=== PATIENT | female | born 1935 | race Caucasian/White ===

== ENCOUNTER 2022-04-24 18:17 | Inpatient (IN) | payer OTHER ==
[2022-04-24 20:28] LABS: BASO % 0.3 % (0-2.0); HEMATOCRIT 41.6 % (32.4-45.2); HEMOGLOBIN 13.9 GM/dL (10.7-15.3); LYMPH % 13.2 % (8-40); MCH 31.2 pg (25.7-33.7); MCHC 33.5 g/dl (32.0-36.0); MEAN CELL VOLUME 92.9 fl (80-96); MEAN PLT VOLUME 8.8 fl (7.5-11.1); MONO % 8.3 % (3.8-10.2); NEUT % 77.2 % (42.8-82.8); PLATELET COUNT 273 10^3/uL (134-434); RBC 4.48 M/mm3 (3.60-5.2); RDW 13.6 % (11.6-15.6); WHITE BLOOD COUNT 9.7 K/mm3 (4.0-10.0)
[2022-04-24 20:42] LABS: EPI CELLS 21 /uL (0-25.1); HYALINE CASTS 0 /uL (0-3.1); URINE APPEARANCE CLEAR; URINE BACTERIA 150 /uL (0-1359); URINE BILIRUBIN NEGATIVE (NEGATIVE); URINE COLOR YELLOW; URINE GLUCOSE (UA) NEGATIVE (NEGATIVE); URINE KETONE NEGATIVE (NEGATIVE); URINE LEUK ESTERASE 2+ (NEGATIVE); URINE NITRITE NEGATIVE (NEGATIVE); URINE PROTEIN TRACE (NEGATIVE); URINE RBC 12 /uL (0-23.9); URINE UROBILINOGEN 0.2 mg/dL (0.2-1.0); URINE WBC 76 /uL (0-25.8)
[2022-04-24 20:48] LABS: CALCIUM 9.5 mg/dL (8.5-10.1)
[2022-04-24 20:49] LABS: BLOOD UREA NITROGEN 29.6 mg/dL (7-18)
[2022-04-24 20:52] LABS: CREATININE 1.4 mg/dL (0.55-1.3)
[2022-04-24 20:54] LABS: BILIRUBIN,TOTAL 1.4 mg/dL (0.2-1); TOT PROT 7.7 g/dl (6.4-8.2)
[2022-04-24] MEDS ORDERED: CEFTRIAXONE 1 GM in DEXTROSE 5%-WATER - 50 ML IVPB ONE (21:10)
[2022-04-24] MEDS ORDERED: SODIUM CHLORIDE 0.9% 500 ML INFUS.BAG IV ONE (21:11)
[2022-04-24] MEDS ORDERED: CEFTRIAXONE 1 GM/50 ML BAG ONE (21:16)
[2022-04-25] MEDS ORDERED: SODIUM CHLORIDE 0.45% 1,000 ML IV SCH (01:15)
[2022-04-25] MEDS ORDERED: LEVOTHYROXINE NA 50 MCG TABLET (FP) PO SCH (07:00)
[2022-04-25 07:42] LABS: BASO % 0.2 % (0-2.0); EOS % 1.5 % (0-4.5); HEMATOCRIT 38.9 % (32.4-45.2); HEMOGLOBIN 13.2 GM/dL (10.7-15.3); LYMPH % 13.4 % (8-40); MCH 31.4 pg (25.7-33.7); MEAN CELL VOLUME 92.2 fl (80-96); MEAN PLT VOLUME 8.5 fl (7.5-11.1); MONO % 8.5 % (3.8-10.2); NEUT % 76.4 % (42.8-82.8); PLATELET COUNT 252 10^3/uL (134-434); RBC 4.22 M/mm3 (3.60-5.2); RDW 13.7 % (11.6-15.6); WHITE BLOOD COUNT 9.8 K/mm3 (4.0-10.0)
[2022-04-25 07:43] LABS: PROTHROMBIN TIME (PATIENT) 11.5 SEC (9.7-13.0)
[2022-04-25 07:45] LABS: ACTIVATED PTT 29.7 SECONDS (25.2-36.5)
[2022-04-25 08:03] LABS: MAGNESIUM 2.1 mg/dL (1.8-2.4)
[2022-04-25 08:04] LABS: CALCIUM 8.9 mg/dL (8.5-10.1)
[2022-04-25 08:05] LABS: ALBUMIN 3.5 g/dl (3.4-5.0); BLOOD UREA NITROGEN 21.7 mg/dL (7-18)
[2022-04-25 08:07] LABS: CREATININE 1.2 mg/dL (0.55-1.3); TOT PROT 6.9 g/dl (6.4-8.2)
[2022-04-25 08:08] LABS: PHOSPHOROUS 3.2 mg/dL (2.5-4.9)
[2022-04-25 08:11] LABS: BILIRUBIN,TOTAL 1.8 mg/dL (0.2-1)
[2022-04-25] MEDS ORDERED: LEVOTHYROXINE NA 25 MCG TABLET (FP) ONE (10:26)
[2022-04-25] MEDS ORDERED: CEFTRIAXONE 1 GM/50 ML BAG ONE (10:26)
[2022-04-25] MEDS: CEFTRIAXONE 1 GM in DEXTROSE 5%-WATER - 50 ML IVPB SCH (10:43)
[2022-04-25] MEDS: LEVOTHYROXINE SODIUM 100 MCG/ML 1 ML VIAL IVPUSH SCH (10:43)
[2022-04-25] MEDS ORDERED: MAGNESIUM SULF 50% (8.12 MEQ/2 ML-1 GM VIAL) IVPB ONE (10:52)
[2022-04-25] MEDS ORDERED: hydrALAZINE HCL 20 MG/ML VIAL IVPUSH PRN (11:31)
[2022-04-25] MEDS ORDERED: levETIRAcetam 500 MG/5 ML INJECTION VIAL IVPB ONE ×2 (12:58→14:35)
[2022-04-25] MEDS ORDERED: MAGNESIUM SULFATE IN WATER 2 GM/50 ML IVPB IVPB ONE (14:35)
[2022-04-25] MEDS ORDERED: hydrALAZINE HCL 20 MG/ML VIAL ONE (16:54)
[2022-04-25] MEDS ORDERED: VALSARTAN 40 MG TABLET PO ONE (19:25)
[2022-04-25] MEDS ORDERED: PATIENT'S OWN MEDICATION (NON-FORMULARY) (Pravastatin Sodium 40 MG Tablet) PO SCH (22:00)
[2022-04-25] MEDS ORDERED: ATORVASTATIN CA 80 MG TABLET (FP) PO SCH (22:00)
[2022-04-26] MEDS ORDERED: levETIRAcetam 500 MG/5 ML INJECTION VIAL IVPB ONE (00:27)
[2022-04-26] MEDS: levETIRAcetam 500 MG/5 ML INJECTION VIAL IVPB SCH ×3 (00:31→22:01)
[2022-04-26 08:34] LABS: BASO % 0.1 % (0-2.0); EOS % 0.9 % (0-4.5); HEMATOCRIT 37.9 % (32.4-45.2); HEMOGLOBIN 12.7 GM/dL (10.7-15.3); LYMPH % 8.4 % (8-40); MCH 31.1 pg (25.7-33.7); MCHC 33.5 g/dl (32.0-36.0); MEAN CELL VOLUME 92.7 fl (80-96); MONO % 9.9 % (3.8-10.2); NEUT % 80.7 % (42.8-82.8); PLATELET COUNT 259 10^3/uL (134-434); RBC 4.09 M/mm3 (3.60-5.2); RDW 13.7 % (11.6-15.6); WHITE BLOOD COUNT 12.1 K/mm3 (4.0-10.0)
[2022-04-26 09:19] LABS: ALBUMIN 3.4 g/dl (3.4-5.0); BLOOD UREA NITROGEN 22.1 mg/dL (7-18)
[2022-04-26 09:20] LABS: CALCIUM 8.8 mg/dL (8.5-10.1)
[2022-04-26 09:22] LABS: CREATININE 1.1 mg/dL (0.55-1.3); MAGNESIUM 2.6 mg/dL (1.8-2.4)
[2022-04-26 09:24] LABS: BILIRUBIN,TOTAL 2.3 mg/dL (0.2-1); TOT PROT 6.6 g/dl (6.4-8.2)
[2022-04-26] MEDS: CEFTRIAXONE 1 GM in DEXTROSE 5%-WATER - 50 ML IVPB SCH (10:06)
[2022-04-26] MEDS: DEXTROSE 5%-NORMAL SALINE 1,000 ML IV SCH (13:03)
[2022-04-26] MEDS: LEVOTHYROXINE SODIUM 100 MCG/ML 1 ML VIAL IVPUSH SCH (13:03)
[2022-04-26] MEDS: hydrALAZINE HCL 20 MG/ML VIAL IVPUSH SCH ×2 (17:13→22:03)
[2022-04-26] MEDS ORDERED: ACETAMINOPHEN 1000 MG/100 ML BAG IVPB ONE (22:21)
[2022-04-27 00:38] VITALS: BMI 17.7
[2022-04-27] MEDS: DEXTROSE 5%-NORMAL SALINE 1,000 ML IV SCH ×2 (01:22→17:08)
[2022-04-27] MEDS: hydrALAZINE HCL 20 MG/ML VIAL IVPUSH SCH ×3 (04:33→17:02)
[2022-04-27 08:11] LABS: BASO % 0.4 % (0-2.0); EOS % 1.2 % (0-4.5); HEMOGLOBIN 12.6 GM/dL (10.7-15.3); LYMPH % 8.5 % (8-40); MCH 31.5 pg (25.7-33.7); MCHC 33.9 g/dl (32.0-36.0); MEAN CELL VOLUME 92.9 fl (80-96); MEAN PLT VOLUME 9.2 fl (7.5-11.1); MONO % 11.8 % (3.8-10.2); NEUT % 78.1 % (42.8-82.8); PLATELET COUNT 211 10^3/uL (134-434); RBC 3.99 M/mm3 (3.60-5.2); RDW 14.2 % (11.6-15.6); WHITE BLOOD COUNT 11.2 K/mm3 (4.0-10.0)
[2022-04-27 08:35] LABS: CALCIUM 8.6 mg/dL (8.5-10.1); MAGNESIUM 2.5 mg/dL (1.8-2.4)
[2022-04-27 08:37] LABS: BLOOD UREA NITROGEN 23.7 mg/dL (7-18)
[2022-04-27 08:40] LABS: BILIRUBIN,TOTAL 1.5 mg/dL (0.2-1); TOT PROT 6.4 g/dl (6.4-8.2)
[2022-04-27] MEDS: CEFTRIAXONE 1 GM in DEXTROSE 5%-WATER - 50 ML IVPB SCH (10:39)
[2022-04-27] MEDS: levETIRAcetam 500 MG/5 ML INJECTION VIAL IVPB SCH (10:40)
[2022-04-27] MEDS: MEMANTINE HCL 10 MG TABLET (FP) PO SCH (10:40)
[2022-04-27] MEDS: LEVOTHYROXINE SODIUM 100 MCG/ML 1 ML VIAL IVPUSH SCH (10:42)
[2022-04-27] MEDS ORDERED: hydrALAZINE HCL 20 MG/ML VIAL IVPUSH PRN (16:50)
[2022-04-27] MEDS: ACETAMINOPHEN 325 MG TABLET (FP) PO PRN (17:05)
[2022-04-27] MEDS: AMINO ACIDS/PROTEIN HYDROLYS 30 ML LIQUID.PKT PO SCH (17:13)
[2022-04-27] MEDS: amLODIPine BESYLATE 5 MG TABLET (FP) PO SCH (17:13)
[2022-04-27] MEDS: ATORVASTATIN CA 40 MG TABLET (FP) PO SCH (21:37)
[2022-04-27] MEDS: levETIRAcetam 500 MG TABLET (FP) PO SCH (21:38)
[2022-04-27] MEDS: MIRTAZAPINE 15 MG TABLET (FP) PO SCH (21:38)
[2022-04-28] MEDS: LEVOTHYROXINE NA 50 MCG TABLET (FP) PO SCH (06:02)
[2022-04-28] MEDS: CEFTRIAXONE 1 GM in DEXTROSE 5%-WATER - 50 ML IVPB SCH (10:05)
[2022-04-28] MEDS: AMINO ACIDS/PROTEIN HYDROLYS 30 ML LIQUID.PKT PO SCH ×2 (10:05→16:57)
[2022-04-28] MEDS: levETIRAcetam 500 MG TABLET (FP) PO SCH ×2 (10:06→21:10)
[2022-04-28] MEDS: LISINOPRIL 5 MG TABLET PO SCH (10:06)
[2022-04-28] MEDS: MULTIVITAMINS (DAILY MVI) TABLET (FP) PO SCH (10:06)
[2022-04-28] MEDS: MEMANTINE HCL 10 MG TABLET (FP) PO SCH (10:06)
[2022-04-28] MEDS: amLODIPine BESYLATE 5 MG TABLET (FP) PO SCH (10:09)
[2022-04-28 10:10] LABS: BASO % 0.2 % (0-2.0); EOS % 0.4 % (0-4.5); HEMATOCRIT 36.9 % (32.4-45.2); HEMOGLOBIN 12.1 GM/dL (10.7-15.3); LYMPH % 8.7 % (8-40); MCH 30.8 pg (25.7-33.7); MCHC 32.6 g/dl (32.0-36.0); MEAN CELL VOLUME 94.2 fl (80-96); MEAN PLT VOLUME 9.3 fl (7.5-11.1); MONO % 11.1 % (3.8-10.2); NEUT % 79.6 % (42.8-82.8); PLATELET COUNT 217 10^3/uL (134-434); RBC 3.92 M/mm3 (3.60-5.2); RDW 14.1 % (11.6-15.6); WHITE BLOOD COUNT 11.5 K/mm3 (4.0-10.0)
[2022-04-28 11:00] LABS: ALBUMIN 2.7 g/dl (3.4-5.0); BLOOD UREA NITROGEN 23.9 mg/dL (7-18)
[2022-04-28 11:05] LABS: CALCIUM 8.6 mg/dL (8.5-10.1); TOT PROT 6.2 g/dl (6.4-8.2)
[2022-04-28 11:06] LABS: MAGNESIUM 2.3 mg/dL (1.8-2.4)
[2022-04-28] MEDS: DEXTROSE 5%-NORMAL SALINE 1,000 ML IV SCH (16:56)
[2022-04-28] MEDS: MIRTAZAPINE 15 MG TABLET (FP) PO SCH (21:10)
[2022-04-28] MEDS: ATORVASTATIN CA 40 MG TABLET (FP) PO SCH (21:10)
[2022-04-29] MEDS: DEXTROSE 5%-NORMAL SALINE 1,000 ML IV SCH ×2 (02:40→12:30)
[2022-04-29] MEDS: LEVOTHYROXINE NA 50 MCG TABLET (FP) PO SCH (06:17)
[2022-04-29] MEDS: ACETAMINOPHEN 1000 MG/100 ML BAG IVPB PRN ×2 (06:19→17:11)
[2022-04-29 07:50] LABS: BASO % 0.4 % (0-2.0); EOS % 3.3 % (0-4.5); HEMATOCRIT 36.4 % (32.4-45.2); HEMOGLOBIN 12.3 GM/dL (10.7-15.3); LYMPH % 13.3 % (8-40); MCH 31.4 pg (25.7-33.7); MCHC 33.7 g/dl (32.0-36.0); MEAN CELL VOLUME 93.2 fl (80-96); MEAN PLT VOLUME 9.2 fl (7.5-11.1); PLATELET COUNT 230 10^3/uL (134-434); RBC 3.91 M/mm3 (3.60-5.2); RDW 14.3 % (11.6-15.6); WHITE BLOOD COUNT 9.7 K/mm3 (4.0-10.0)
[2022-04-29 08:24] LABS: ALBUMIN 2.5 g/dl (3.4-5.0); CALCIUM 8.7 mg/dL (8.5-10.1); MAGNESIUM 2.2 mg/dL (1.8-2.4)
[2022-04-29 08:27] LABS: CREATININE 1.1 mg/dL (0.55-1.3)
[2022-04-29 08:29] LABS: BILIRUBIN,TOTAL 0.9 mg/dL (0.2-1)
[2022-04-29] MEDS: AMINO ACIDS/PROTEIN HYDROLYS 30 ML LIQUID.PKT PO SCH ×2 (08:49→17:00)
[2022-04-29] MEDS: LISINOPRIL 5 MG TABLET PO SCH (10:12)
[2022-04-29] MEDS: CEFTRIAXONE 1 GM in DEXTROSE 5%-WATER - 50 ML IVPB SCH (10:12)
[2022-04-29] MEDS: levETIRAcetam 500 MG TABLET (FP) PO SCH ×2 (10:12→21:58)
[2022-04-29] MEDS: MULTIVITAMINS (DAILY MVI) TABLET (FP) PO SCH (10:12)
[2022-04-29] MEDS: MEMANTINE HCL 10 MG TABLET (FP) PO SCH (10:14)
[2022-04-29] MEDS: amLODIPine BESYLATE 5 MG TABLET (FP) PO SCH (10:14)
[2022-04-29] MEDS: MIRTAZAPINE 15 MG TABLET (FP) PO SCH (21:58)
[2022-04-29] MEDS: ATORVASTATIN CA 40 MG TABLET (FP) PO SCH (21:58)
[2022-04-30] MEDS: ACETAMINOPHEN 1000 MG/100 ML BAG IVPB PRN (05:29)
[2022-04-30] MEDS: LEVOTHYROXINE NA 50 MCG TABLET (FP) PO SCH (06:07)
[2022-04-30] MEDS: AMINO ACIDS/PROTEIN HYDROLYS 30 ML LIQUID.PKT PO SCH ×2 (09:41→17:52)
[2022-04-30] MEDS: MULTIVITAMINS (DAILY MVI) TABLET (FP) PO SCH (09:42)
[2022-04-30] MEDS: LISINOPRIL 5 MG TABLET PO SCH (09:42)
[2022-04-30] MEDS: levETIRAcetam 500 MG TABLET (FP) PO SCH ×2 (09:42→21:57)
[2022-04-30] MEDS: MEMANTINE HCL 10 MG TABLET (FP) PO SCH (09:42)
[2022-04-30] MEDS: amLODIPine BESYLATE 5 MG TABLET (FP) PO SCH (09:42)
[2022-04-30 16:26] LABS: EOS % 6.7 % (0-4.5); HEMATOCRIT 38.1 % (32.4-45.2); LYMPH % 14.5 % (8-40); MCH 31.4 pg (25.7-33.7); MEAN CELL VOLUME 92.2 fl (80-96); MEAN PLT VOLUME 8.7 fl (7.5-11.1); MONO % 9.4 % (3.8-10.2); NEUT % 68.4 % (42.8-82.8); PLATELET COUNT 284 10^3/uL (134-434); RBC 4.13 M/mm3 (3.60-5.2); RDW 13.9 % (11.6-15.6); WHITE BLOOD COUNT 7.4 K/mm3 (4.0-10.0)
[2022-04-30 16:44] LABS: ALBUMIN 2.7 g/dl (3.4-5.0); BLOOD UREA NITROGEN 30.4 mg/dL (7-18); MAGNESIUM 2.1 mg/dL (1.8-2.4)
[2022-04-30 16:49] LABS: BILIRUBIN,TOTAL 0.5 mg/dL (0.2-1); TOT PROT 6.3 g/dl (6.4-8.2)
[2022-04-30] MEDS: DEXTROSE 5%-NORMAL SALINE 1,000 ML IV SCH (17:52)
[2022-04-30] MEDS: MIRTAZAPINE 15 MG TABLET (FP) PO SCH (21:58)
[2022-04-30] MEDS: ATORVASTATIN CA 40 MG TABLET (FP) PO SCH (21:58)
[2022-05-01] MEDS: LEVOTHYROXINE NA 50 MCG TABLET (FP) PO SCH (06:10)
[2022-05-01] MEDS: LISINOPRIL 5 MG TABLET PO SCH (09:20)
[2022-05-01] MEDS: MULTIVITAMINS (DAILY MVI) TABLET (FP) PO SCH (09:20)
[2022-05-01] MEDS: AMINO ACIDS/PROTEIN HYDROLYS 30 ML LIQUID.PKT PO SCH ×2 (09:20→16:57)
[2022-05-01] MEDS: MEMANTINE HCL 10 MG TABLET (FP) PO SCH (09:21)
[2022-05-01] MEDS: levETIRAcetam 500 MG TABLET (FP) PO SCH (09:21)
[2022-05-01] MEDS: amLODIPine BESYLATE 5 MG TABLET (FP) PO SCH (09:25)
[2022-05-01 15:12] VITALS: RESP 18
[2022-05-01] MEDS: DEXTROSE 5%-NORMAL SALINE 1,000 ML IV SCH (16:58)
[2022-05-01 17:41] VITALS: BP 134/72; PULSE 92; TEMP 98.4
[2022-05-01] MEDS: ACETAMINOPHEN 325 MG TABLET (FP) PO PRN (18:14)
[2022-05-01 18:24] LABS: HEMATOCRIT 37.7 % (32.4-45.2); HEMOGLOBIN 12.7 GM/dL (10.7-15.3); MCHC 33.7 g/dl (32.0-36.0); MEAN CELL VOLUME 91.8 fl (80-96); MEAN PLT VOLUME 8.3 fl (7.5-11.1); PLATELET COUNT 269 10^3/uL (134-434); RBC 4.11 M/mm3 (3.60-5.2); RDW 13.4 % (11.6-15.6); WHITE BLOOD COUNT 8.2 K/mm3 (4.0-10.0)
[2022-05-01 18:33] LABS: CALCIUM 9.1 mg/dL (8.5-10.1)
[2022-05-01 18:34] LABS: ALBUMIN 2.5 g/dl (3.4-5.0); BLOOD UREA NITROGEN 26.2 mg/dL (7-18); MAGNESIUM 1.9 mg/dL (1.8-2.4)
[2022-05-01 18:37] LABS: CREATININE 0.9 mg/dL (0.55-1.3)
[2022-05-01 18:39] LABS: TOT PROT 6.1 g/dl (6.4-8.2)
[2022-05-01 18:55] LABS: ANISOCYTOSIS 3+; MACROCYTOSIS 0; OVALOCYTE 1+; TARGET CELLS 1+; TEAR DROP CELLS 1+
== END 2022-05-01 19:19 | DRG 64 ==
LOC: JER 18:17 → JERBED 21:45 → J4S 04-26 06:56
PROVIDERS: ADMIT Internal Medicine; ATTEND Nurse Practitioner Family
DX: I61.4 Nontraumatic intracerebral hemorrhage in cerebellum (principal); E43 Unspecified severe protein-calorie malnutrition; N17.9 Acute kidney failure, unspecified; N39.0 Urinary tract infection, site not specified; Z68.1 Body mass index [BMI] 19.9 or less, adult; G81.94 Hemiplegia, unspecified affecting left nondominant side; E78.5 Hyperlipidemia, unspecified; I68.0 Cerebral amyloid angiopathy; F03.90 Unspecified dementia, unspecified severity, without behavioral disturbance, psychotic disturbance, mood disturbance, and anxiety; E03.9 Hypothyroidism, unspecified; R29.6 Repeated falls; I10 Essential (primary) hypertension; W18.30XA Fall on same level, unspecified, initial encounter; Y92.098 Other place in other non-institutional residence as the place of occurrence of the external cause; K21.9 Gastro-esophageal reflux disease without esophagitis
CPT/HCPCS: 0241U-QW; 36415; 70450-TC; 71045-TC-FY; 72125-TC; 72170-TC-FY; 76775-TC; 80053; 80061; 81003; 82550; 82553; 82607; 82962; 83036; 83735; 84100; 84439; 84443; 84479; 84484; 85025; 85610; 85651; 85730; 86140; 87040; 87086; 93005; 93010; 93306-TC; 93880-TC; 97161-GP; 99285-25

== ENCOUNTER 2022-07-01 14:39 | Inpatient (IN) | payer OTHER ==
[2022-07-01 16:26] LABS: BASO % 0.4 % (0-2.0); EOS % 0.6 % (0-4.5); HEMATOCRIT 37.7 % (32.4-45.2); HEMOGLOBIN 12.7 GM/dL (10.7-15.3); LYMPH % 8.4 % (8-40); MCH 30.1 pg (25.7-33.7); MCHC 33.6 g/dl (32.0-36.0); MEAN CELL VOLUME 89.6 fl (80-96); MEAN PLT VOLUME 9.6 fl (7.5-11.1); MONO % 3.5 % (3.8-10.2); NEUT % 87.1 % (42.8-82.8); PLATELET COUNT 402 10^3/uL (134-434); RDW 15.6 % (11.6-15.6); WHITE BLOOD COUNT 11.3 K/mm3 (4.0-10.0)
[2022-07-01 16:51] LABS: CHLORIDE 122 mmol/L (98-107); SODIUM 152 mmol/L (136-145)
[2022-07-01 16:53] LABS: CALCIUM 9.9 mg/dL (8.5-10.1)
[2022-07-01 16:54] LABS: ALBUMIN 2.7 g/dl (3.4-5.0); ANION GAP 7 MMOL/L (8-16); BLOOD UREA NITROGEN 78.1 mg/dL (7-18); CO2 23 mmol/L (21-32); GLUCOSE,RANDOM 124 mg/dL (74-106); VENOUS BASE EXCESS -5.2 mmol/L (-2-2); VENOUS O2 SATURATION 30.9 % (70-80); VENOUS PCO2 40.7 mmHg (38-52); VENOUS PH 7.321 (7.310-7.410)
[2022-07-01 16:57] LABS: CREATININE 2.7 mg/dL (0.55-1.3); SGOT/AST 21 U/L (15-37); SGPT/ALT 22 U/L (13-61)
[2022-07-01 16:58] LABS: TOT PROT 7.3 g/dl (6.4-8.2)
[2022-07-01 16:59] LABS: BILIRUBIN,TOTAL 0.8 mg/dL (0.2-1)
[2022-07-01 17:00] LABS: ALK PHOS 123 U/L (45-117)
[2022-07-01] MEDS ORDERED: LACTATED RINGERS SOLUTION 1000 ML INFUS.BAG IV ONE (17:05)
[2022-07-01 17:26] LABS: LACTIC ACID 3.3 mmol/L (0.4-2.0)
[2022-07-01] MEDS ORDERED: SODIUM CHLORIDE 0.9% 500 ML INFUS.BAG IV ONE (17:31)
[2022-07-01 18:24] LABS: MAGNESIUM 2.1 mg/dL (1.8-2.4)
[2022-07-01 18:28] LABS: PHOSPHOROUS 3.1 mg/dL (2.5-4.9)
[2022-07-01 18:43] LABS: INR 1.34 (0.83-1.09); PROTHROMBIN TIME (PATIENT) 15.5 SEC (9.7-13.0)
[2022-07-01 18:45] LABS: ACTIVATED PTT 28.2 SECONDS (25.2-36.5)
[2022-07-01 19:04] LABS: EPI CELLS >36 /uL (0-25.1); HYALINE CASTS 4 /uL (0-3.1); URINE APPEARANCE CLOUDY; URINE BACTERIA 136 /uL (0-1359); URINE BILIRUBIN NEGATIVE (NEGATIVE); URINE COLOR DK YELLOW; URINE GLUCOSE (UA) NEGATIVE (NEGATIVE); URINE KETONE TRACE (NEGATIVE); URINE LEUK ESTERASE 1+ (NEGATIVE); URINE NITRITE NEGATIVE (NEGATIVE); URINE PROTEIN 1+ (NEGATIVE); URINE RBC 5 /uL (0-23.9); URINE WBC 61 /uL (0-25.8)
[2022-07-01 19:15] LABS: LACTIC ACID 2.4 mmol/L (0.4-2.0)
[2022-07-01] MEDS ORDERED: DEXTROSE 5%-0.45% SALINE 1,000 ML IV SCH (19:15)
[2022-07-01] MEDS ORDERED: AMOX TR/POT CLAV 500MG/125MG TABLETS (FP) PO SCH ×2 (22:00)
[2022-07-01] MEDS ORDERED: MIRTAZAPINE 15 MG TABLET (FP) PO SCH (22:00)
[2022-07-01] MEDS ORDERED: levETIRAcetam 500 MG TABLET (FP) PO SCH (22:00)
[2022-07-02] MEDS: SILVER SULFADIAZINE 1% TOP CREAM 400 GM JAR TP SCH ×2 (03:59→09:43)
[2022-07-02] MEDS ORDERED: LEVOTHYROXINE NA 50 MCG TABLET (FP) PO SCH (07:00)
[2022-07-02] MEDS ORDERED: levETIRAcetam 500 MG/5 ML INJECTION VIAL IVPB ONE (08:51)
[2022-07-02] MEDS ORDERED: SILVER SULFADIAZINE 1% TOP CREAM 50 GM JAR TP ONE (09:26)
[2022-07-02] MEDS: levETIRAcetam 500 MG/5 ML INJECTION VIAL IVPB SCH (09:43)
[2022-07-02] MEDS ORDERED: APIXABAN 5 MG TABLET PO SCH (10:00)
[2022-07-02] MEDS ORDERED: FOAM BANDAGE TP SCH (10:00)
[2022-07-02] MEDS ORDERED: amLODIPine BESYLATE 5 MG TABLET (FP) PO SCH (10:00)
[2022-07-02 18:52] VITALS: BMI 13.6
[2022-07-02] MEDS: AMINO ACIDS 4.25%/D5W 1,000 ML IV SCH (20:12)
[2022-07-02] MEDS: COLLAGENASE CLOSTRIDIUM HIST. 30 GRAMS TUBE TP SCH (20:12)
[2022-07-03] MEDS: levETIRAcetam 500 MG/5 ML INJECTION VIAL IVPB SCH (10:10)
[2022-07-03] MEDS: COLLAGENASE CLOSTRIDIUM HIST. 30 GRAMS TUBE TP SCH (10:10)
[2022-07-03] MEDS: AMINO ACIDS 4.25%/D5W 1,000 ML IV SCH ×2 (19:30→23:41)
[2022-07-04] MEDS: AMINO ACIDS 4.25%/D5W 1,000 ML IV SCH ×2 (09:09→17:22)
[2022-07-04] MEDS: COLLAGENASE CLOSTRIDIUM HIST. 30 GRAMS TUBE TP SCH (09:21)
[2022-07-04] MEDS: levETIRAcetam 500 MG/5 ML INJECTION VIAL IVPB SCH (09:21)
[2022-07-05] MEDS: levETIRAcetam 500 MG/5 ML INJECTION VIAL IVPB SCH (09:13)
[2022-07-05] MEDS: AMINO ACIDS 4.25%/D5W 1,000 ML IV SCH (09:14)
[2022-07-05] MEDS: COLLAGENASE CLOSTRIDIUM HIST. 30 GRAMS TUBE TP SCH (09:15)
[2022-07-06] MEDS ORDERED: levETIRAcetam 500 MG/5 ML INJECTION VIAL IVPB SCH (09:55)
[2022-07-06] MEDS ORDERED: MEMANTINE HCL 10 MG TABLET (FP) PO SCH (10:00)
[2022-07-06] MEDS: COLLAGENASE CLOSTRIDIUM HIST. 30 GRAMS TUBE TP SCH (11:30)
[2022-07-06] MEDS: AMINO ACIDS 4.25%/D5W 1,000 ML IV SCH (12:57)
[2022-07-06 20:57] VITALS: BP 117/71; PULSE 97; RESP 18; TEMP 98.1
== END 2022-07-06 20:25 | DRG 640 ==
LOC: JER 14:39 → JERBED 20:00 → J8W 07-02 14:17
PROVIDERS: ADMIT Internal Medicine; ATTEND Nurse Practitioner Acute Care
DX: R62.7 Adult failure to thrive (principal); E43 Unspecified severe protein-calorie malnutrition; N17.9 Acute kidney failure, unspecified; N39.0 Urinary tract infection, site not specified; I69.354 Hemiplegia and hemiparesis following cerebral infarction affecting left non-dominant side; R64 Cachexia; Z68.1 Body mass index [BMI] 19.9 or less, adult; E87.0 Hyperosmolality and hypernatremia; E86.1 Hypovolemia; F03.90 Unspecified dementia, unspecified severity, without behavioral disturbance, psychotic disturbance, mood disturbance, and anxiety; E78.5 Hyperlipidemia, unspecified; I10 Essential (primary) hypertension; E86.0 Dehydration
CPT/HCPCS: 0241U-QW; 36415; 70450-TC; 71045-TC-FY; 80053; 81003; 82550; 82803; 82962; 83605; 83735; 84100; 84484; 85025; 85610; 85730; 87040; 87086; 87186; 93005; 93010; 99285-25; C9803-CS; U0003; U0005